=== PATIENT | female | born 1985 | race American Indian/Alaskan Native ===

== ENCOUNTER 2018-09-15 15:14 | Inpatient (IN) | payer OTHER ==
--- NOTE | 2018-09-15 15:53 | History and Physical Report ---
Addendum entered and electronically signed by NEWTON WELLER CNM 09/16/18 03:35: No evidence of rupture of membranes. 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 no EDC Calculations LMP: 09/20/2018 EDC Confirmation: 10/07/2018 Gestational Age: 15 2/7 weeks Past History : 3 Term Births: 2 Premature Births: 0 Living Children: 2 Para: 2 Mult. Births: 0 Prev : 0 Prev. attempt? 0 Aborta: 0 Elect. Ab: 0 Spont. Ab: 0 Ectopics: 0 # 1 Delivery date: 2013 Weeks Gestation: 39 Delivery type: Delivery location: [facility] [place] Comments: pre-e, IOL for oligo # 2 Delivery date: 2015 Weeks Gestation: 39 Delivery type: Delivery location: [facility] Comments: pre-e & GDM Past Medical History: no hx abnormal pap hx pre-e x 2 pregnancies Past Surgical History: negative Past Medical History Anesthesia Complications: negative Anemia: negative Autoimmune Disorder: negative Bleeding Disorder: negative Blood Transfusions: negative Breast Disease: negative Diabetes: negative Heart Disease: negative Hypertension: negative Hepatitis/Liver Disease: negative Kidney Disease/UTI: negative Neurologic/Epilepsy/Migraines: negative Phlebitis/Varicosities: negative Psychiatric: negative Pulmonary Disease/Asthma: negative Thyroid Disease: negative Hospitalizations: negative Surgery (Non-global security architect): negative Abnormal PAP: negative Family Hx: Mother - , 32 years ago bone cancer maternal Aunt - breast Maternal uncle - lung CA MGF - thyroid cancer 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 of genital herpes: no Partner hx. of genital herpes: no Rash, Viral, or Febrile illness since last LMP? no Varicella/Chicken Pox Status: Previous Disease Genetic History Congenital Heart Defect: Mom: no Dad: no Emmett Disease: Mom: no Dad: no Thalassemia Mom: no Dad: no Neural Tube Defect Mom: no Dad: no Down's Syndrome Mom: no Dad: no Jose-Sachs Mom: no Dad: no Sickle Cell Disease/Trait Mom: no Dad: no Hemophilia Mom: no Dad: no Muscular Dystrophy Mom: no Dad: no Cystic Fibrosis Mom: no Dad: no [place] Chorea Mom: no Dad: no Mental Retardation Mom: no Dad: no Fragile X Mom: no Dad: no Other Genetic/Chromosomal Disorder Mom: no Dad: no Child w/other defect Mom: no Dad: no Enviromental Exposures Xray Exposure: no Medication, drug, or alcohol use since LMP: no Chemical/Other Exposure: no Exposure to Cat Liter: yes Hx of Parvovirus (Fifth Disease): no Occupational Exposure to Children: none Active Medications (reviewed today): None Current Allergies (reviewed today): No known allergies Past History Past Medical History: other (see hpi) Past Surgical History: other (see hpi) 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) Family/Genetic History: other (see hpi) Social history: other (see hpi) Medications and Allergies Allergies Allergy/AdvReac Type Severity Reaction Status Date / Time No Known Allergies Allergy Verified 09/15/18 15:26 Home Medications Medication Instructions Recorded Confirmed Last Taken Type Ferrous Sulfate [Iron] 1 tab PO BID 09/15/18 09/15/18 09/15/18 00:00 History Pnv No.121/Iron/Folic Acid 1 tab PO QDAY 09/15/18 09/15/18 09/15/18 10:00 History [ Multivitamin Tablet] Review of Systems All systems: negative (none) - Physical Exam Breasts: Positive: normal Cardiovascular: Regular rate, Normal S1, Normal S2 Lungs: Positive: Clear to auscultation Abdomen: Positive: normal appearance, soft, normal bowel sounds. Negative: distention, tenderness Vulva: both: normal Vagina: Positive: normal moisture. Negative: discharge Cervix: Negative: lesion, discharge Uterus: Positive: normal size, normal contour Adnexa: both: normal Anus/Rectum: Positive: normal perianal skin, heme negative. Negative: rectal mass, hemorrhoids Extremities: Deep Tendon Reflex Grade: Normal +2 - Obstetrical FHR: auscultation normal Uterine Contraction Monitor Mode: External Cervical Dilatation: 0.5 Cervical Effacement Percentage: 50 station: -3 Uterine Contraction Pattern: Irregular Uterine Tone Measurement Phase: Contraction Uterine Contraction Intensity: Mild Results Result Diagrams: 09/15/18 16:30 All other labs normal. Assessment and Plan Patient resting in bed, no complaints. Denies feeling any contractions, LOF, or vaginal bleeding. SVE ft/50/-3, anterior, soft. Category 1 tracing. Cervidil placed. Plan of care reviewed with patient for cervidil to remain in place for 12 hours. May have ambien for sleep tonight. LR to IV for oligo. Will reassess SVE at 0730 am.
[2018-09-15 17:14] LABS: Hematocrit 32.9 % (30.3-42.9); Hemoglobin 10.9 gm/dl (10.1-14.3); Mean Corpuscular HGB Conc 33 % (30-34); Mean Corpuscular Volume 83 fl (79-97); Platelet Count 169 K/mm3 (140-440); Red Blood Count 3.99 M/mm3 (3.65-5.03); Red Cell Distribution Width 14.6 % (13.2-15.2)
[2018-09-15] MEDS ORDERED: PITOCin/NS 20 UNIT/1000ML DRIP 20 UNITS/1,000 ML BAG IV SCH (19:00)
[2018-09-15] MEDS ORDERED: CERVIDIL VG ONE (19:39)
[2018-09-15] MEDS: LACTATED RINGERS 1,000 ML IV SCH (20:10)
[2018-09-16] MEDS ORDERED: MINERAL OIL PO PRN (01:26)
[2018-09-16] MEDS ORDERED: XYLOCAINE 2% INFILTRATI ONE (01:26)
[2018-09-16] MEDS ORDERED: BRETHINE IVP PRN (01:26)
[2018-09-16] MEDS ORDERED: BRETHINE SUB-Q PRN (01:26)
[2018-09-16] MEDS ORDERED: ZOFRAN IV PRN (01:26)
[2018-09-16] MEDS ORDERED: CYTOTEC PR PRN (01:41)
[2018-09-16] MEDS ORDERED: HEMABATE IM PRN (01:41)
[2018-09-16] MEDS ORDERED: LACTATED RINGERS 1,000 ML IV SCH (02:00)
[2018-09-16] MEDS ORDERED: PITOCin/NS 20 UNIT/1000ML DRIP 20 UNITS/1,000 ML BAG IV SCH (02:00)
[2018-09-16] MEDS: LACTATED RINGERS 1,000 ML IV SCH (02:46)
--- NOTE | 2018-09-16 09:17 | Progress Note ---
Assessment and Plan patient w/o complaints this morning, cervidil removed and patient eating light breakfast. Plan of care for pitocin today. discussed possibility of repeating cervidil tonight if active labor doesn't start with pitocin today. pt verbalizes understanding. All questions addressed. - Patient Problems (1) HTN (hypertension), benign Current Visit: Yes Status: Acute (2) Oligohydramnios Current Visit: Yes Status: Acute Qualifiers: Fetus number: single or unspecified fetus Trimester: third trimester Qualified Code(s): O41.03X0 - Oligohydramnios, third trimester, not applicable or unspecified (3) 37 weeks gestation of Current Visit: Yes Status: Acute Subjective - Subjective Date of service: 09/16/18 Principal diagnosis: 37w0d, IOL for oligio Patient reports: movement normal, no new complaints Objective - Vital Signs Vital Signs: Vital Signs - 12hr 09/15/18 09/15/18 09/15/18 21:18 21:23 21:28 Temperature Pulse Rate 90 88 84 Respiratory Rate Blood Pressure O2 Sat by Pulse 97 97 96 Oximetry 09/15/18 09/15/18 09/15/18 21:33 21:38 21:43 Temperature Pulse Rate 91 H 86 86 Respiratory Rate Blood Pressure O2 Sat by Pulse 97 97 96 Oximetry 09/15/18 09/15/18 09/15/18 21:48 21:53 21:58 Temperature Pulse Rate 90 89 89 Respiratory Rate Blood Pressure O2 Sat by Pulse 96 96 96 Oximetry 09/15/18 09/15/18 09/15/18 22:03 22:08 22:13 Temperature Pulse Rate 93 H 87 87 Respiratory Rate Blood Pressure O2 Sat by Pulse 97 96 97 Oximetry 09/15/18 09/15/18 09/15/18 22:18 22:23 22:28 Temperature Pulse Rate 85 88 91 H Respiratory Rate Blood Pressure O2 Sat by Pulse 97 97 95 Oximetry 09/15/18 09/15/18 09/15/18 22:33 22:43 22:48 Temperature Pulse Rate 88 88 83 Respiratory Rate Blood Pressure O2 Sat by Pulse 98 97 97 Oximetry 09/15/18 09/15/18 09/15/18 22:53 22:58 23:03 Temperature Pulse Rate 87 99 H 99 H Respiratory Rate Blood Pressure O2 Sat by Pulse 97 97 97 Oximetry 09/15/18 09/15/18 09/15/18 23:08 23:13 23:18 Temperature Pulse Rate 87 89 88 Respiratory Rate Blood Pressure O2 Sat by Pulse 97 97 97 Oximetry 09/15/18 09/15/18 09/15/18 23:23 23:28 23:33 Temperature Pulse Rate 86 103 H 87 Respiratory Rate Blood Pressure O2 Sat by Pulse 97 98 97 Oximetry 09/15/18 09/15/18 09/15/18 23:38 23:43 23:48 Temperature 98.8 F Pulse Rate 93 H 86 89 Respiratory 18 Rate Blood Pressure 134/76 O2 Sat by Pulse 97 92 97 Oximetry 09/15/18 09/15/18 09/16/18 23:53 23:58 00:03 Temperature Pulse Rate 95 H 91 H 89 Respiratory Rate Blood Pressure O2 Sat by Pulse 96 96 98 Oximetry 09/16/18 09/16/18 09/16/18 00:08 00:13 00:18 Temperature Pulse Rate 93 H 94 H 89 Respiratory Rate Blood Pressure O2 Sat by Pulse 96 96 95 Oximetry 09/16/18 09/16/18 09/16/18 00:21 00:23 00:28 Temperature Pulse Rate 91 H 88 99 H Respiratory Rate Blood Pressure O2 Sat by Pulse 94 96 96 Oximetry 09/16/18 09/16/18 09/16/18 00:33 00:38 00:43 Temperature Pulse Rate 87 87 86 Respiratory Rate Blood Pressure O2 Sat by Pulse 95 96 96 Oximetry 09/16/18 09/16/18 09/16/18 00:48 00:49 00:53 Temperature Pulse Rate 82 85 82 Respiratory Rate Blood Pressure O2 Sat by Pulse 95 94 94 Oximetry 09/16/18 09/16/18 09/16/18 00:56 00:58 01:03 Temperature Pulse Rate 84 88 87 Respiratory Rate Blood Pressure O2 Sat by Pulse 94 96 97 Oximetry 09/16/18 09/16/18 09/16/18 01:08 01:13 01:18 Temperature Pulse Rate 82 84 88 Respiratory Rate Blood Pressure O2 Sat by Pulse 96 96 96 Oximetry 09/16/18 09/16/18 09/16/18 01:23 01:28 01:33 Temperature Pulse Rate 88 82 81 Respiratory Rate Blood Pressure O2 Sat by Pulse 96 97 97 Oximetry 09/16/18 09/16/18 09/16/18 01:38 01:43 01:48 Temperature Pulse Rate 85 83 86 Respiratory Rate Blood Pressure O2 Sat by Pulse 97 97 97 Oximetry 09/16/18 09/16/18 09/16/18 01:53 01:58 02:03 Temperature Pulse Rate 86 83 87 Respiratory Rate Blood Pressure O2 Sat by Pulse 97 97 97 Oximetry 09/16/18 09/16/18 09/16/18 02:08 02:13 02:18 Temperature Pulse Rate 83 83 87 Respiratory Rate Blood Pressure O2 Sat by Pulse 97 97 97 Oximetry 09/16/18 09/16/18 09/16/18 02:23 02:28 02:33 Temperature Pulse Rate 83 94 H 88 Respiratory Rate Blood Pressure O2 Sat by Pulse 97 95 94 Oximetry 09/16/18 09/16/18 09/16/18 02:35 02:38 02:43 Temperature Pulse Rate 90 81 84 Respiratory Rate Blood Pressure O2 Sat by Pulse 93 95 96 Oximetry 09/16/18 09/16/18 09/16/18 02:48 02:50 02:53 Temperature Pulse Rate 82 89 86 Respiratory Rate Blood Pressure O2 Sat by Pulse 96 93 94 Oximetry 09/16/18 09/16/18 09/16/18 02:56 02:58 03:03 Temperature Pulse Rate 81 78 83 Respiratory Rate Blood Pressure O2 Sat by Pulse 94 96 95 Oximetry 09/16/18 09/16/18 09/16/18 03:08 03:10 03:13 Temperature Pulse Rate 86 92 H 80 Respiratory Rate Blood Pressure O2 Sat by Pulse 96 94 96 Oximetry 09/16/18 09/16/18 09/16/18 03:17 03:18 03:23 Temperature Pulse Rate 86 79 84 Respiratory Rate Blood Pressure O2 Sat by Pulse 93 94 97 Oximetry 09/16/18 09/16/18 09/16/18 03:28 03:33 03:38 Temperature Pulse Rate 86 87 84 Respiratory Rate Blood Pressure O2 Sat by Pulse 97 95 95 Oximetry 09/16/18 09/16/18 09/16/18 03:40 03:43 03:46 Temperature Pulse Rate 81 79 83 Respiratory Rate Blood Pressure O2 Sat by Pulse 94 96 94 Oximetry 09/16/18 09/16/18 09/16/18 03:48 03:51 03:53 Temperature Pulse Rate 80 79 79 Respiratory Rate Blood Pressure O2 Sat by Pulse 96 94 95 Oximetry 09/16/18 09/16/18 09/16/18 03:58 04:03 04:06 Temperature Pulse Rate 85 81 92 H Respiratory Rate Blood Pressure O2 Sat by Pulse 93 95 94 Oximetry 09/16/18 09/16/18 09/16/18 04:08 04:12 04:13 Temperature Pulse Rate 85 83 79 Respiratory Rate Blood Pressure O2 Sat by Pulse 94 94 95 Oximetry 09/16/18 09/16/18 09/16/18 04:31 04:36 04:41 Temperature Pulse Rate 102 H 82 84 Respiratory Rate Blood Pressure O2 Sat by Pulse 97 97 96 Oximetry 09/16/18 09/16/18 09/16/18 04:46 04:51 04:56 Temperature Pulse Rate 82 85 87 Respiratory Rate Blood Pressure O2 Sat by Pulse 97 96 97 Oximetry 09/16/18 09/16/18 09/16/18 05:01 05:06 05:11 Temperature Pulse Rate 84 88 85 Respiratory Rate Blood Pressure O2 Sat by Pulse 97 97 97 Oximetry 09/16/18 09/16/18 09/16/18 05:16 05:21 05:26 Temperature Pulse Rate 85 86 88 Respiratory Rate Blood Pressure O2 Sat by Pulse 96 96 96 Oximetry 09/16/18 09/16/18 09/16/18 05:31 05:36 05:41 Temperature Pulse Rate 85 87 83 Respiratory Rate Blood Pressure O2 Sat by Pulse 96 96 97 Oximetry 09/16/18 09/16/18 09/16/18 05:43 05:44 05:46 Temperature 98.6 F Pulse Rate 85 86 Respiratory 18 Rate Blood Pressure 133/73 O2 Sat by Pulse 92 97 Oximetry 09/16/18 09/16/18 09/16/18 05:51 05:56 06:01 Temperature Pulse Rate 93 H 85 86 Respiratory Rate Blood Pressure O2 Sat by Pulse 96 95 96 Oximetry 09/16/18 09/16/18 09/16/18 06:06 06:11 06:14 Temperature Pulse Rate 94 H 88 86 Respiratory Rate Blood Pressure O2 Sat by Pulse 96 96 94 Oximetry 09/16/18 09/16/18 09/16/18 06:16 06:21 06:22 Temperature Pulse Rate 81 83 85 Respiratory Rate Blood Pressure O2 Sat by Pulse 97 95 94 Oximetry 09/16/18 09/16/18 09/16/18 06:26 06:31 06:36 Temperature Pulse Rate 84 86 85 Respiratory Rate Blood Pressure O2 Sat by Pulse 95 95 96 Oximetry 09/16/18 09/16/18 09/16/18 06:37 06:41 06:44 Temperature Pulse Rate 84 84 84 Respiratory Rate Blood Pressure O2 Sat by Pulse 94 96 94 Oximetry 09/16/18 09/16/18 09/16/18 06:46 06:49 06:51 Temperature Pulse Rate 85 89 87 Respiratory Rate Blood Pressure O2 Sat by Pulse 94 94 93 Oximetry 09/16/18 09/16/18 09/16/18 06:54 06:56 07:01 Temperature Pulse Rate 103 H 84 83 Respiratory Rate Blood Pressure O2 Sat by Pulse 90 95 95 Oximetry 09/16/18 09/16/18 09/16/18 07:06 07:08 07:11 Temperature Pulse Rate 86 86 79 Respiratory Rate Blood Pressure O2 Sat by Pulse 95 94 95 Oximetry 09/16/18 09/16/18 09/16/18 07:15 07:16 07:17 Temperature 98.1 F Pulse Rate 84 83 Respiratory 18 Rate Blood Pressure O2 Sat by Pulse 95 94 Oximetry 09/16/18 09/16/18 09/16/18 07:21 07:22 07:26 Temperature Pulse Rate 84 89 76 Respiratory Rate Blood Pressure O2 Sat by Pulse 95 94 97 Oximetry 09/16/18 09/16/18 09/16/18 07:29 07:31 07:35 Temperature Pulse Rate 84 78 91 H Respiratory Rate Blood Pressure O2 Sat by Pulse 92 95 93 Oximetry 09/16/18 09/16/18 09/16/18 07:36 07:41 07:46 Temperature Pulse Rate 92 H 81 84 Respiratory Rate Blood Pressure O2 Sat by Pulse 94 97 96 Oximetry 09/16/18 09/16/18 09/16/18 07:51 07:52 07:56 Temperature Pulse Rate 80 87 81 Respiratory Rate Blood Pressure O2 Sat by Pulse 97 93 95 Oximetry 09/16/18 09/16/18 09/16/18 08:01 08:04 08:06 Temperature Pulse Rate 75 89 85 Respiratory Rate Blood Pressure O2 Sat by Pulse 97 94 95 Oximetry - Exam Breasts: normal Cardiovascular: Regular rate Lungs: Clear to auscultation Abdomen: Present: normal appearance Vulva: both: normal Uterus: Present: normal FHR: auscultation normal, category 1 Uterine Contraction Monitor Mode: External Uterine Contraction Pattern: Irregular Uterine Tone Measurement Phase: Resting Extremities: normal Deep Tendon Reflex Grade: Normal +2 - Labs Labs: Abnormal Labs 09/15/18 16:30 MCH 27 L Laboratory Results - last 24 hr 09/15/18 09/15/18 16:30 16:30 WBC 8.5 RBC 3.99 Hgb 10.9 Hct 32.9 MCV 83 MCH 27 L MCHC 33 RDW 14.6 Plt Count 169 Blood Type O POSITIVE Antibody Screen Negative
[2018-09-16] MEDS: PITOCin/NS 30 UNIT/500ML 30 UNITS/500 ML BAG IV SCH ×9 (10:44→16:50)
[2018-09-16] MEDS ORDERED: CERVIDIL VG ONE (19:30)
--- NOTE | 2018-09-16 21:30 | Event Note ---
Date: 09/16/18 no cervical change after approx 8 hours of pitocin. As previously discussed with patient, will stop pitocin, allow regular dinner and then place second cervidil for cervical ripening. Pt verbalized understanding.
[2018-09-17] MEDS: PITOCin/NS 30 UNIT/500ML 30 UNITS/500 ML BAG IV SCH (10:43)
--- NOTE | 2018-09-17 11:05 | Progress Note ---
Assessment and Plan 33 y.o. IUP at 37w0d, day 2 induction for oligohydramnios. Patient resting comfortably in bed. Cervidil removed this morning and patient has showered and had breakfast. SVE 3/50/-3, soft, posterior. No evidence of ROM. Patient reports occasional contractions, not painful. Category 1 tracing. Plan to start pitocin 4x4. Will AROM once station comes down and monitor internally d/u difficulty tracing FHT and contractions externally. POC reviewed with Dr. Brennan who agrees to proceed. Patient verbalized understanding of current plan of care, all questions answered. Anticipate vaginal delivery. 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 no EDC Calculations LMP: 09/20/2018 EDC Confirmation: 10/07/2018 Gestational Age: 15 2/7 weeks Past History : 3 Term Births: 2 Premature Births: 0 Living Children: 2 Para: 2 Mult. Births: 0 Prev : 0 Prev. attempt? 0 Aborta: 0 Elect. Ab: 0 Spont. Ab: 0 Ectopics: 0 # 1 Delivery date: 2013 Weeks Gestation: 39 Delivery type: Delivery location: [facility] [place] Comments: pre-e, IOL for oligo # 2 Delivery date: 2016 Weeks Gestation: 39 Delivery type: Delivery location: [facility] [place] Comments: pre-e & GDM Past Medical History: no hx abnormal pap hx pre-e x 2 pregnancies Past Surgical History: negative Past Medical History Anesthesia Complications: negative Anemia: negative Autoimmune Disorder: negative Bleeding Disorder: negative Blood Transfusions: negative Breast Disease: negative Diabetes: negative Heart Disease: negative Hypertension: negative Hepatitis/Liver Disease: negative Kidney Disease/UTI: negative Neurologic/Epilepsy/Migraines: negative Phlebitis/Varicosities: negative Psychiatric: negative Pulmonary Disease/Asthma: negative Thyroid Disease: negative Hospitalizations: negative Surgery (Non-farmworker animal): negative Abnormal PAP: negative Family Hx: Mother - , 32 years ago bone cancer maternal Aunt - breast Maternal uncle - lung CA MGF - thyroid cancer 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 of genital herpes: no Partner hx. of genital herpes: no Rash, Viral, or Febrile illness since last LMP? no Varicella/Chicken Pox Status: Previous Disease Genetic History Congenital Heart Defect: Mom: no Dad: no Emmett Disease: Mom: no Dad: no Thalassemia Mom: no Dad: no Neural Tube Defect Mom: no Dad: no Down's Syndrome Mom: no Dad: no Jose-Sachs Mom: no Dad: no Sickle Cell Disease/Trait Mom: no Dad: no Hemophilia Mom: no Dad: no Muscular Dystrophy Mom: no Dad: no Cystic Fibrosis Mom: no Dad: no [place] Chorea Mom: no Dad: no Mental Retardation Mom: no Dad: no Fragile X Mom: no Dad: no Other Genetic/Chromosomal Disorder Mom: no Dad: no Child w/other defect Mom: no Dad: no Enviromental Exposures Xray Exposure: no Medication, drug, or alcohol use since LMP: no Chemical/Other Exposure: no Exposure to Cat Liter: yes Hx of Parvovirus (Fifth Disease): no Occupational Exposure to Children: none Active Medications (reviewed today): None Current Allergies (reviewed today): No known allergies Patient reports: movement normal, contractions (occasional ), no new complaints Objective - Vital Signs Vital Signs: Vital Signs - 12hr 09/17/18 09/17/18 09/17/18 03:09 03:11 08:19 Temperature 97.8 F Pulse Rate 95 H 88 Respiratory 22 Rate Blood Pressure 141/73 150/74 O2 Sat by Pulse 97 Oximetry 09/17/18 09/17/18 09/17/18 10:31 10:36 10:41 Temperature Pulse Rate 95 H 97 H 97 H Respiratory Rate Blood Pressure O2 Sat by Pulse 96 96 97 Oximetry 09/17/18 09/17/18 09/17/18 10:45 10:46 10:51 Temperature Pulse Rate 89 94 H 91 H Respiratory Rate Blood Pressure 132/75 O2 Sat by Pulse 96 96 Oximetry 09/17/18 10:56 Temperature Pulse Rate 97 H Respiratory Rate Blood Pressure O2 Sat by Pulse 96 Oximetry - Exam Breasts: normal Cardiovascular: Regular rate, Normal S1, Normal S2 Lungs: Clear to auscultation Abdomen: Present: normal appearance, soft, normal bowel sounds Vulva: both: normal Uterus: Present: normal, firm FHR: category 1 Uterine Contraction Monitor Mode: External Cervical Dilatation: 3 Cervical Effacement Percentage: 50 station: -3 Uterine Contraction Frequency (min): 3-7 Uterine Contraction Duration: 60-90 Uterine Contraction Pattern: Regular Uterine Tone Measurement Phase: Contraction (soft resting tone) Uterine Contraction Intensity: Mild - Labs Labs: Abnormal Labs 09/15/18 16:30 MCH 27 L Laboratory Results - last 24 hr 09/15/18 16:30 RPR Nonreactive
[2018-09-17] MEDS ORDERED: XYLOCAINE 2%/ EPI 1:200,000 INFILTRATI ONE (13:51)
--- NOTE | 2018-09-17 16:13 | Event Note ---
Addendum entered and electronically signed by NEWTON WELLER CNM 09/17/18 16:16: SVE /-2 Original Note: Date: 09/17/18 AROM, clear. IUPC and FSE placed due to difficulty monitoring FHTs and contractions externally. Pitocin at 12. Will continue to increase to maintain adequate MVUs and as tolerated by FHTs. Patient comfortable at this time. Declines medication or intervention for pain. Dr. Brennan updated on patient status.
--- NOTE | 2018-09-17 17:30 | Event Note ---
Date: 09/17/18 Patient increasingly uncomfortable. SVE 5.5/70/-2. Patient requesting epidural at this time. RN notified of SVE and LR bolus started in preparation for epidural.
[2018-09-17] MEDS ORDERED: NARCAN 2 MG/2 ML IV PRN (17:34)
--- NOTE | 2018-09-17 17:34 | Anesthesia Consultation ---
Anesthesia Consult and Med Hx Date of service: 09/17/18 - Airway Anesthetic Teeth Evaluation: Good ROM Head & Neck: Adequate Mental/Hyoid Distance: Adequate Mallampati Class: Class II Intubation Access Assessment: Probably Good - Pre-Operative Health Status ASA Pre-Surgery Classification: ASA2 Proposed Anesthetic Plan: Epidural, Spinal - Pulmonary Hx Asthma: No COPD: No Hx Pneumonia: No - Cardiovascular System Hx Hypertension: Yes (pih) - Central Nervous System Hx Seizures: No Hx Psychiatric Problems: No - Endocrine Hx Renal Disease: No Hx End Stage Renal Disease: No Hx Hypothyroidism: No Hx Hyperthyroidism: No - Hematic Hx Anemia: Yes Hx Sickle Cell Disease: No - Other Systems Hx Alcohol Use: No Hx Obesity: Yes (BMI 44.3)
[2018-09-17] MEDS ORDERED: fentaNYL-BUPIV 2 MCG/ML-0.125% 200 MCG/100 ML BAG EPIDURAL SCH (18:00)
--- NOTE | 2018-09-17 18:57 | Procedure Note ---
OB Delivery Note - Delivery Date of Delivery: 09/17/18 Surgeon: SUMANTH CORRAL Estimated blood loss: 300cc - Vaginal Delivery presentation: vertex Delivery position: OP Intrapartum events: decreased FHT variability, mult. late decelerations Delivery induction: cervidil Delivery augmentation: rupture of membranes, pitocin Delivery monitor: external FHT, external uterine, internal FHT, internal uterine Route of delivery: forceps Indicators for instrumentation: nonreassuring FHR tracing Delivery placenta: spontaneous Episiotomy: none Delivery laceration: 1st degree Delivery repair: vicryl Anesthesia: epidural Delivery comments: Called to see patient due to deep variable decelerations patient quickly went from 8 cm to complete dilatation. Also were applied and +2 station and was delivered straight OP. Bulb suction peritoneum. NICU personnel present at delivery. - Infant A at 1 minute: 8 at 5 minutes: 9 Gender: Male (6 lbs. 4 oz.)
[2018-09-17] MEDS ORDERED: DULCOLAX PR PRN (21:16)
[2018-09-17] MEDS ORDERED: BENADRYL PO PRN (21:16)
[2018-09-17] MEDS ORDERED: NORCO 5/325 PO PRN (21:16)
[2018-09-17] MEDS ORDERED: PHENERGAN PO PRN (21:16)
[2018-09-17] MEDS ORDERED: LANSINOH TP PRN (21:16)
[2018-09-17] MEDS ORDERED: TYLENOL PO PRN (21:16)
[2018-09-17] MEDS ORDERED: MILK OF MAGNESIA PO PRN (21:16)
[2018-09-17] MEDS ORDERED: TUCKS PAD TP PRN (21:16)
[2018-09-17] MEDS ORDERED: SODIUM CHLORIDE FLUSH SYRINGE 10 ML IV NR (21:16)
[2018-09-17] MEDS ORDERED: DERMOPLAST TP PRN (21:31)
[2018-09-17] MEDS: FEOSOL PO SCH (22:34)
[2018-09-17] MEDS: COLACE PO SCH (22:35)
[2018-09-17] MEDS: IBUPROFEN PO SCH (22:35)
--- NOTE | 2018-09-18 06:14 | Discharge Summary ---
Providers - Providers Date of Admission: 09/15/18 15:15 Date of discharge: 09/18/18 (pt agrees with d/c ) Attending physician: SHIRA SEWELL 09/17/18 21:16 Consult to Customer Account Specialist [CONS] Routine Reason For Exam: assistance with , SNS Primary care physician: SHIRA SEWELL Hospitalization Reason for admission: active labor Delivery: Episiotomy: none Laceration: none Incision: normal Other procedures: none complications: none Discharge diagnosis: IUP at term delivered baby: male Condition at discharge: Good Disposition: DC-01 TO HOME OR SELFCARE - Discharge Diagnoses (1) Normal spontaneous vaginal delivery Status: Resolved Comment: RTO 4 weeks PP care Plan - Provider Discharge Summary Activity: routine, no sex for 6 weeks, no heavy lifting 4 weeks, no strenuous exercise Diet: routine Instructions: routine Additional instructions: [] Smoking cessation referral if applicable(refer to patient education folder for contact #) [] Refer to [facility] Booklet Call your doctor immediately for: * Fever > 100.5 * Heavy vaginal bleeding ( >1 pad per hour) * Severe persistent headache * Shortness of breath * Reddened, hot, painful area to leg or breast * Drainage or odor from incision. * Keep incision clean and dry at all times and follow doctor's instructions regarding bathing/showering - Follow up plan Follow up: SHIRA SEWELL MD [Primary Care Provider] - 7 Days (Congratulations! Please call [phone] to schedule your visit in 4 weeks and 1 week for your son's circumcision. Bring the EMLA cream to his visit. Do NOT use at home. Motrin/ibuprofen for cramping/pain. Call with concerns. )
[2018-09-18 07:36] LABS: Hematocrit 28.3 % (30.3-42.9); Hemoglobin 9.4 gm/dl (10.1-14.3)
[2018-09-18] MEDS ORDERED: PRENATAL VITAMIN PO SCH (10:00)
[2018-09-18] MEDS: FEOSOL PO SCH (12:24)
[2018-09-18] MEDS: COLACE PO SCH (12:24)
[2018-09-18] MEDS: IBUPROFEN PO SCH ×2 (12:24→18:16)
[2018-09-18 21:56] VITALS: BP 151/78
== END 2018-09-18 21:30 | disposition home or self-care (01) | DRG 775 ==
LOC: TRG 15:14 → LD 15:15 → OB 09-17 20:17
PROVIDERS: ADMIT Obstetrics & Gynecology; ATTEND Obstetrics & Gynecology
PROC: 3E0P7VZ Introduction of Hormone into Female Reproductive, Via Natural or Artificial Opening (ICD-10-PCS; 2018-09-15)
PROC: 10D07Z3 Extraction of Products of Conception, Low Forceps, Via Natural or Artificial Opening (ICD-10-PCS; principal; 2018-09-17)
PROC: 10H07YZ Insertion of Other Device into Products of Conception, Via Natural or Artificial Opening (ICD-10-PCS; 2018-09-17)
PROC: 3E0R3BZ Introduction of Anesthetic Agent into Spinal Canal, Percutaneous Approach (ICD-10-PCS; 2018-09-17)
PROC: 00HU33Z Insertion of Infusion Device into Spinal Canal, Percutaneous Approach (ICD-10-PCS; 2018-09-17)
PROC: 10907ZC Drainage of Amniotic Fluid, Therapeutic from Products of Conception, Via Natural or Artificial Opening (ICD-10-PCS; 2018-09-17)
PROC: 0HQ9XZZ Repair Perineum Skin, External Approach (ICD-10-PCS; 2018-09-17)
DX: O76 Abnormality in fetal heart rate and rhythm complicating labor and delivery (principal); Z80.8 Family history of malignant neoplasm of other organs or systems; O41.03X0 Oligohydramnios, third trimester, not applicable or unspecified; E66.9 Obesity, unspecified; O99.214 Obesity complicating childbirth; Z80.1 Family history of malignant neoplasm of trachea, bronchus and lung; O70.0 First degree perineal laceration during delivery; Z3A.36 36 weeks gestation of pregnancy; Z37.0 Single live birth
CPT/HCPCS: 36415; 85014; 85018; 85027; 86592; 86850; 86900; 86901; G0378; A6250; J2590; J7120

== ENCOUNTER 2021-11-07 10:01 | Emergency (ER) | payer OTHER ==
[2021-11-07 10:22] VITALS: BP 179/109
--- NOTE | 2021-11-07 10:27 | Emergency Department Report ---
ED General Adult HPI - General Chief complaint: Headache Stated complaint: HIGH BLOOD PRESSURE/HEADACHE Time Seen by Provider: 11/07/21 10:16 Source: patient Mode of arrival: Ambulatory Limitations: No Limitations - History of Present Illness Initial comments: Patient presents due to elevated blood pressure and headache. She woke up this morning and noticed that her blood pressure was elevated. It had been elevated slightly prior to this morning. She states it was significantly elevated this morning. She thought it was related to stress. She tried to calm herself down and checked her blood pressure periodically. It continued to rise. She had a headache which got worse and worse. She came in for evaluation treatment. Headache is described as global and aching. It is pounding. She denies any abrupt onset of headache. It was not thunderclap in nature. It was not a maximum intensity at the time of onset. She has no chest pain or shortness of breath. There is no numbness tingling in the arms or legs. She not had hematuria. She denies visual change. She has not been on blood pressure medication in the past. Severity scale (0 -10): 2 - Related Data Home Medications Medication Instructions Recorded Confirmed Last Taken Ferrous Sulfate [Iron] 1 tab PO BID 09/15/18 09/15/18 09/15/18 00:00 Pnv No.121/Iron/Folic Acid 1 tab PO QDAY 09/15/18 09/15/18 09/15/18 10:00 [ Multivitamin Tablet] Previous Rx's Medication Instructions Recorded Last Taken Type Lidocain2.5%/Prilocai2.5% [Emla] 5 gm TP PRN #1 tube 09/18/18 Unknown Rx Lisinopril [Zestril] 5 mg PO DAILY #30 tab 11/07/21 Unknown Rx Allergies Allergy/AdvReac Type Severity Reaction Status Date / Time No Known Allergies Allergy Verified 09/15/18 15:26 ED Review of Systems ROS: Stated complaint: HIGH BLOOD PRESSURE/HEADACHE Other details as noted in HPI Comment: All other systems reviewed and negative Constitutional: denies: fever Eyes: denies: vision change ENT: denies: throat pain Respiratory: denies: cough Cardiovascular: denies: chest pain Endocrine: denies: unexplained weight loss Gastrointestinal: denies: abdominal pain Genitourinary: denies: dysuria Musculoskeletal: denies: back pain Skin: denies: rash Neurological: as per HPI Hematological/Lymphatic: denies: easy bruising ED Past Medical Hx - Past Medical History Hx Hypertension: Yes (pih) Hx Congestive Heart Failure: No Hx Diabetes: Yes (gest) Hx Deep Vein Thrombosis: No Hx Renal Disease: No Hx Sickle Cell Disease: No Hx Seizures: No Hx Asthma: No Hx COPD: No Hx HIV: No - Surgical History Past Surgical History?: No - Family History Family history: hypertension - Social History Smoking Status: Never Smoker Substance Use Type: None - Medications Home Medications: Home Medications Medication Instructions Recorded Confirmed Last Taken Type Ferrous Sulfate [Iron] 1 tab PO BID 09/15/18 09/15/18 09/15/18 00:00 History Pnv No.121/Iron/Folic Acid 1 tab PO QDAY 09/15/18 09/15/18 09/15/18 10:00 History [ Multivitamin Tablet] Lidocain2.5%/Prilocai2.5% [Emla] 5 gm TP PRN #1 tube 09/18/18 Unknown Rx Lisinopril [Zestril] 5 mg PO DAILY #30 tab 11/07/21 Unknown Rx ED Physical Exam - General Limitations: No Limitations, Other (Pulse ox noted and normal) General appearance: alert, in no apparent distress, anxious, other (Nontoxic) - Head Head exam: Present: atraumatic, normocephalic - Eye Eye exam: Present: normal appearance, PERRL, EOMI. Absent: scleral icterus - ENT ENT exam: Present: normal orophraynx, normal external ear exam - Neck Neck exam: Present: normal inspection. Absent: tenderness, meningismus - Respiratory Respiratory exam: Present: normal lung sounds bilaterally. Absent: respiratory distress - Cardiovascular Cardiovascular Exam: Present: regular rate, normal rhythm. Absent: JVD - GI/Abdominal GI/Abdominal exam: Present: soft. Absent: tenderness - Extremities Exam Extremities exam: Present: normal capillary refill. Absent: pedal edema - Back Exam Back exam: Absent: CVA tenderness (R), CVA tenderness (L) - Neurological Exam Neurological exam: Present: alert, oriented X3, CN II-XII intact, normal gait, reflexes normal, other (NIH score is 0. No pronator drift or dysdiadochokinesia). Absent: motor sensory deficit - Psychiatric Psychiatric exam: Present: anxious - Skin Skin exam: Present: warm, dry ED Course Vital Signs 11/07/21 11/07/21 10:19 10:22 Temperature 98.9 F 98.9 F Pulse Rate 81 81 Respiratory 18 18 Rate Blood Pressure 179/109 Blood Pressure 179/109 [Right] O2 Sat by Pulse 99 99 Oximetry - Reevaluation(s) Reevaluation #1: 11/07/21 10:39 Patient was discharged. ED Medical Decision Making - Medical Decision Making Patient presented with uncontrolled hypertension. There is no symptomatology suggestive of endorgan damage. She has no neurologic deficit suggestive of stroke. Based on a set guidelines, there is no indication to emergently lower blood pressure in the asymptomatic patient. We will start her on medication. We have had a long discussion about lifestyle changes and outpatient follow-up. She is been referred to her PCP for recheck. Critical Care Time: No Critical care attestation.: If time is entered above; I have spent that time in minutes in the direct care of this critically ill patient, excluding procedure time. ED Disposition Clinical Impression: Uncontrolled hypertension, Generalized headache Disposition: 01 HOME / SELF CARE / HOMELESS Is pt being admited?: No Condition: Stable Instructions: Form - Headache Record, Preventing Hypertension, Managing Your Hypertension, Hypertension, Adult, Hypertension (ED) Additional Instructions: AVOID SALT AND CAFFEINE. DRINK WATER. CHECK YOUR BLOOD PRESSURE AT HOME. RETURN FOR PROBLEMS. Prescriptions: Lisinopril [Zestril] 5 mg PO DAILY #30 tab Referrals: MAGAN ANGELO MD [Staff Physician] - 3-5 Days
== END 2021-11-07 10:32 | disposition home or self-care (01) ==
LOC: ED 10:01
DX: R51.9 Headache, unspecified (principal); I10 Essential (primary) hypertension; E11.9 Type 2 diabetes mellitus without complications
CPT/HCPCS: 99282